=== PATIENT | female | born 1980 | race Two or more races ===

== ENCOUNTER 2018-02-20 16:00 | Emergency (ER) | payer SELFPAY ==
[~2018-02-20] VITALS: Ht 177.8 cm; Wt 105.0 kg
[2018-02-20] MEDS ORDERED: RANI-276 PO (16:18)
[2018-02-20] MEDS ORDERED: ESCI5TAB7 PO (16:18)
[2018-02-20] MEDS ORDERED: ONDANSETRON ODT 4 MG ONE (16:41)
[2018-02-20] MEDS ORDERED: ONDANSETRON ODT 4 MG PO ONE (17:00)
[2018-02-20 17:17] LABS: MEAN CORPUSCULAR HEMOGLOBIN 28.7 pg (27.0-34.8); MEAN CORPUSCULAR HGB CONC 33.6 g/dL (32.4-35.8); MEAN CORPUSCULAR VOLUME 85.3 fL (80-100); MEAN PLATELET VOLUME 7.9 fL (7.4-10.4); PLATELET COUNT 295 x10^3/uL (130-400); RED BLOOD COUNT 4.75 x10^6/uL (3.82-5.3); RED CELL DISTRIBUTION WIDTH 15.4 % (9.6-15.2)
[2018-02-20 17:29] LABS: ALBUMIN 3.7 g/dL (3.4-5.0); ANION GAP 12 mmol/L (5-15); CALCIUM 8.2 mg/dL (8.5-10.1); CHLORIDE 113 mmol/L (98-107)
[2018-02-20] MEDS ORDERED: SODIUM CHLORIDE 0.9% 1,000ML IVBOLUS ONE (17:30)
[2018-02-20] MEDS ORDERED: KETOROLAC 30 MG/1 ML IVPush ONE (17:30)
[2018-02-20] MEDS ORDERED: SODIUM CHLORIDE FLUSH 10ML SYR IVF ONE (17:30)
[2018-02-20] MEDS ORDERED: ONDANSETRON 2MG/ML, 2ML IVPush ONE (17:30)
[2018-02-20] MEDS ORDERED: FAMOTIDINE 20 MG/2 ML IVP ONE (17:30)
[2018-02-20] MEDS ORDERED: KETOROLAC 30 MG/1 ML ONE (17:32)
[2018-02-20] MEDS ORDERED: FAMOTIDINE 20 MG/2 ML ONE (17:32)
[2018-02-20] MEDS ORDERED: ONDANSETRON 2MG/ML, 2ML ONE (17:32)
[2018-02-20 17:33] LABS: ALANINE AMINOTRANSFERASE 22 U/L (12-78); ALKALINE PHOSPHATASE 86 U/L (45-117); BILIRUBIN,TOTAL 0.7 mg/dL (0.2-1.0); TOTAL PROTEIN 7.6 g/dL (6.4-8.2)
[2018-02-20 17:35] LABS: BASOPHILS # (AUTO) 0.14 x10^3/uL (0-0.1); BASOPHILS % (AUTO) 1 % (0-1); EOSINOPHILS # (AUTO) 0.07 x10^3/uL (0-0.4); EOSINOPHILS % (AUTO) 0 % (1-7); LYMPHOCYTES # (AUTO) 2.34 x10^3/uL (1-3.4); LYMPHOCYTES % (AUTO) 12 % (22-44); MD SCAN; MONOCYTES # (AUTO) 0.72 x10^3/uL (0.2-0.8); MONOCYTES % (AUTO) 4 % (2-9); NEUTROPHILS # (AUTO) 15.82 x10^3/uL (1.8-6.8); NEUTROPHILS % (AUTO) 83 % (42-75)
[2018-02-20 18:32] LABS: CLOSTRIDIUM DIFFICILE ANTIGEN NEGATIVE; CLOSTRIDIUM DIFFICILE TOXIN NEGATIVE (Negative)
[2018-02-20 18:54] VITALS: BP 106/64
== END 2018-02-20 19:21 | disposition home or self-care (01) ==
LOC: ED 19:15
DX: R11.2 Nausea with vomiting, unspecified (principal); R19.7 Diarrhea, unspecified; E86.0 Dehydration
CPT/HCPCS: 36415; 80053; 83690; 85025; 87324; 96361; 96374; 96375; 99284; J1885; J2405; J7030; Q0162; S0028